=== PATIENT | male | born 1995 | race African-American/Black ===

== ENCOUNTER 2016-12-06 02:20 | Emergency (ER) | payer BC ==
[~2016-12-06] VITALS: Ht 170.2 cm; Wt 72.6 kg
[~2016-12-06 02:20] MED LIST: ALBUAER3 IN; AZIT500T PO; ONDA8TAB9 PO; PRED-188 PO; RANI-185 PO; TRAM50TA2 PO
[2016-12-06 02:32] VITALS: BP 122/79
[2016-12-06] MEDS ORDERED: IBUPROFEN 600 MG TAB PO ONE (05:45)
[2016-12-06] MEDS ORDERED: CYCLOBENZAPRINE HCL 10 MG TAB PO ONE (05:45)
== END 2016-12-06 06:11 | disposition home or self-care (01) ==
LOC: ER 02:23
DX: S30.1XXA Contusion of abdominal wall, initial encounter (principal); J45.909 Unspecified asthma, uncomplicated; W19.XXXA Unspecified fall, initial encounter; Y93.67 Activity, basketball; Y99.8 Other external cause status; Y92.89 Other specified places as the place of occurrence of the external cause; Z79.899 Other long term (current) drug therapy
CPT/HCPCS: 74176

== ENCOUNTER 2018-06-22 09:28 | Emergency (ER) | payer MEDICAID ==
[~2018-06-22] VITALS: Ht 172.7 cm; Wt 72.6 kg
[~2018-06-22 09:28] MED LIST changes: +ONDA-133 PO; -ONDA8TAB9 PO
[2018-06-22 09:34] VITALS: BP 128/84
== END 2018-06-22 11:09 | disposition home or self-care (01) ==
LOC: ER 09:28
DX: S09.8XXA Other specified injuries of head, initial encounter (principal); R42 Dizziness and giddiness; W22.01XA Walked into wall, initial encounter; Y93.89 Activity, other specified; Y92.89 Other specified places as the place of occurrence of the external cause; Y99.8 Other external cause status
CPT/HCPCS: 70450

== ENCOUNTER 2019-02-11 13:17 | Emergency (ER) | payer SELFPAY ==
[~2019-02-11] VITALS: Ht 172.7 cm; Wt 73.9 kg
[2019-02-11 15:57] VITALS: BP 106/71
[2019-02-11 16:29] LABS: Urine Bacteria NONE SEEN /hpf (None Seen); Urine Blood TRACE /uL (Negative); Urine Mucus FEW (None Seen); Urine Specific Gravity 1.027 (1.001-1.035); Urine WBC 46 /hpf (0 - 3)
== END 2019-02-11 17:10 | disposition home or self-care (01) ==
LOC: ER 13:22
DX: N39.0 Urinary tract infection, site not specified (principal); J45.909 Unspecified asthma, uncomplicated
CPT/HCPCS: 81001